=== PATIENT | female | born 1995 | race Caucasian/White ===

== ENCOUNTER 2018-04-10 16:29 | Emergency (ER) | payer OTHER ==
--- NOTE | 2018-04-10 17:29 | ED Physician Chart ---
ED Chief Complaint/HPI - Patient Information Date Seen:: 04/10/18 Time Seen:: 17:15 Chief Complaint:: VAGINAL BLEEDING History of Present Illness:: 22 YR OLD FEMALE WITH VAG BLEEDING FOR 6 DAYS AFTER THE PERIOD FOR BOTH FEBRUARY AND MARCH MILD CRAMPS NO DIZZINESS OR HEADACHE STATES SHE HAS HAD IRREGULAR PERIODS SINCE SEP THIS YEAR Allergies:: Allergies Allergy/AdvReac Type Severity Reaction Status Date / Time Penicillins Allergy Verified 04/10/18 16:57 Vitals:: Vital Signs - 8 hr 04/10/18 16:53 Temp 97.2 F HR 76 RR 18 BP 117/80 O2 Sat % 97 ED Review of Systems - Review of Systems General/Constitutional: No fever, No chills, No weight loss, No weakness, No diaphoresis, No edema, No loss of appetite Skin: No skin lesions, No rash, No bruising Head: No headache, No light-headedness Eyes: No loss of vision, No pain, No diplopia ENT: No earache, No nasal drainage, No sore throat, No tinnitus Neck: No neck pain, No swelling, No thyromegaly, No stiffness, No mass noted Cardio Vascular: No chest pain, No palpitations, No PND, No orthopnea, No edema Pulmonary: No SOB, No cough, No sputum, No wheezing GI: No nausea, No vomiting, No diarrhea, No pain, No melena, No hematochezia, No constipation, No hematemesis G/U: No dysuria, No frequency, No hematuria General Lot Attendant: Abnormal vaginal bleeding Musculoskeletal: No bone or joint pain, No back pain, No muscle pain Endocrine: No polyuria, No polydipsia Psychiatric: No prior psych history, No depression, No anxiety, No suicidal ideation Hematopoietic: No bruising, No lymphadenopathy Allergic/Immuno: No urticaria, No angioedema Neurological: No syncope, No focal symptoms, No weakness, No paresthesia, No headache, No seizure, No dizziness, No confusion, No vertigo ED Past Medical History - Past Medical History Past Medical History: No significant medical hx Family Medical History - Family Member Mother History Unknown: Yes ED Physical Exam - Physical Examination General/Constitutional: Awake, Well-developed, well-nourished, Alert, No distress, GCS 15, Non-toxic appearing, Ambulatory Head: Atraumatic Eyes: Lids, conjuctiva normal, PERRL, EOMI Skin: Nl inspection, No rash, No skin lesions, No ecchymosis, Well hydrated, No lymphadenopathy ENMT: External ears, nose nl, Nasal exam nl, Lips, teeth, gums nl Neck: Nontender, Full ROM w/o pain, No JVD, No nuchal rigidity, No bruit, No mass, No stridor Respiratory: Nl effort/Exclusion, Clear to Auscultation, No Wheeze/Rhonchi/Rales Cardio Vascular: RRR, No murmur, gallop, rubs, NL S1 S2 GI: No tenderness/rebounding/guarding, No organomegaly, No hernia, Normal BS's, Nondistended, No mass/bruits, No McBurney tenderness : No CVA tenderness Extremities: No tenderness or effusion, Full ROM, normal strength in all extremities, No edema, Normal digits & nails Neuro/Psych: Alert/oriented, DTR's symmetric, Normal sensory exam, Normal motor strength, Judgement/insight normal, Mood normal, Normal gait, No focal deficits Misc: Normal back, No paraspinal tenderness ED Assessment - Assessment General Assessment: VAGINAL BLEEDING ED Septic Shock - . Is Septic Shock (SBP<90, OR Lactate>4 mmol\L) present?: No - <6hrs of presentation: Vital Signs: Vital Signs - 8 hr 04/10/18 16:53 Temp 97.2 F HR 76 RR 18 BP 117/80 O2 Sat % 97 ED Reassessment (Disposition) - Diagnosis Diagnosis:: VAGINAL BLEEDING
[2018-04-10 18:10] LABS: % BASOPHILS 0.4 % (0.0-2.0); % EOSINOPHILS 1.4 % (0.0-5.0); % LYMPHOCYTES 32.4 % (20.0-50.0); % MONOCYTES 7.7 % (2.0-10.0); % NEUTROPHILS 58.1 % (40.0-80.0); EOSINOPHILE ABSOLUTE 0.1 Th/cmm (0.1-0.4); HEMATOCRIT 40.4 % (41.0-60); HEMOGLOBIN 13.9 gm/dL (12-16); LYMPHOCYTE ABSOLUTE 2.4 Th/cmm (1.5-3.0); MEAN CELL VOLUME 84.3 fl (81-100); MEAN CORPUSCULAR HEMOGLOBIN 29.1 pg (27.0-31.0); MEAN CORPUSCULAR HGB CONC 34.6 pg (28.0-36.0); MEAN PLATELET VOLUME 9.2 fl; MONOCYTE ABSOLUTE 0.6 Th/cmm (0.3-1.0); NEUTROPHILE ABSOLUTE 4.4 Th/cmm (1.8-8.0); PLATELET COUNT 250 Th/cmm (150-400); RED BLOOD COUNT 4.78 Mil/cmm (3.80-5.10); RED CELL DISTRIBUTION WIDTH 11.8 % (11.5-20.0); WHITE BLOOD COUNT 7.5 Th/cmm (4.8-10.8)
[2018-04-10 18:16] LABS: URINE MICROSCOPIC INDICATED? YES; URINE SOURCE CLEAN C
[2018-04-10 18:26] LABS: ALB/GLOB RATIO 1.5 (1.0-1.8); ALBUMIN 4.4 gm/dL (3.7-5.3); ALKALINE PHOSPHATASE 69 U/L (34-104); ANION GAP 11.8 (7.0-16.0); BILIRUBIN,TOTAL 0.5 mg/dL (0.3-1.0); BUN - UREA NITROGEN 13 mg/dL (7-25); CALCIUM SERUM 9.8 mg/dL (8.6-10.3); CARBON DIOXIDE 24.7 mEq/L (21.0-31.0); CHLORIDE 106 mEq/L (98-107); CREATININE - SERUM 0.7 mg/dL (0.6-1.2); GFR AFRICAN-AMERICAN > 60.0 ml/min (>90); GFR NON AFRICAN-AMERICAN > 60.0 ml/min; GLUCOSE 116 mg/dL (70-105); POTASSIUM SERUM 3.5 mEq/L (3.5-5.1); SGOT 27 U/L (13-39); SGPT/ALT 35 U/L (7-52); SODIUM SERUM 139 mEq/L (136-145); TOTAL PROTEIN,SERUM 7.3 gm/dL (6.0-8.3)
[2018-04-10 19:12] LABS: URINE BILIRUBIN NEGATIVE (NEGATIVE); URINE BLOOD MODERATE (NEGATIVE); URINE GLUCOSE (UA) NEGATIVE (NEGATIVE); URINE KETONE TRACE mg/dL (NEGATIVE); URINE LEUKOCYTE ESTERASE NEGATIVE (NEGATIVE); URINE NITRATE NEGATIVE (NEGATIVE); URINE PROTEIN NEGATIVE (NEGATIVE); URINE UROBILINOGEN 0.2 E.U./dL (0.2 - 1.0)
[2018-04-10 19:14] LABS: URINE CLARITY HAZY (CLEAR); URINE COLOR YELLOW
[2018-04-10 19:15] LABS: URINE EPITHELIAL CELLS MODERATE /lpf (FEW)
[2018-04-10 19:16] LABS: URINE BACTERIA FEW /hpf (NONE SEEN)
--- NOTE | 2018-04-11 08:48 | Diagnostic Imaging Report ---
Abdominal ultrasound HISTORY: Pain Exam is limited due to patient's size, body habitus, and bowel gas. No focal hepatic lesions are seen. The gallbladder is not identified consistent with patient's surgical history. The common bile duct and pancreas cannot be seen. No focal renal lesions. No hydronephrosis. No other obvious retroperitoneal or intra-abdominal abnormalities. IMPRESSION: 1. Very limited exam as noted above 2. Nonvisualization the gallbladder consistent with patient's surgical history 3. No other obvious abnormalities
--- NOTE | 2018-04-11 08:48 | Diagnostic Imaging Report ---
Pelvic ultrasound HISTORY: Abnormal bleeding Transabdominal and transvaginal sonographic technique utilized. Suboptimal delineation of the uterine margins. The uterus appears to be relatively small (5.0 x 2.7 x 3.8 cm). No focal myometrial lesions are seen. The endometrium measures 0.2 mm thickness. No abnormality seen within the ovarian or adnexal areas. No free fluid in the pelvis. IMPRESSION: Negative examination
== END 2018-04-10 20:50 | disposition home or self-care (01) ==
LOC: ER 16:29
DX: N93.9 Abnormal uterine and vaginal bleeding, unspecified (principal); Z88.0 Allergy status to penicillin
CPT/HCPCS: 36415-UA; 76700-TC; 76856-TC; 80053-TC; 81001-TC; 81025-TC; 85025-TC; 87086-90